=== PATIENT | female | born 1990 | race Caucasian/White ===

== ENCOUNTER 2018-08-06 05:55 | Inpatient (IN) ==
[2018-08-06] MEDS ORDERED: MEPERIDINE 50 MG/1 ML VIAL IV PRN (06:06)
[2018-08-06] MEDS ORDERED: ONDANSETRON 4 MG/2 ML VIAL IV PRN (06:06)
[2018-08-06] MEDS ORDERED: OXYTOCIN/LR 20 UNIT/1,000 ML BAG IV SCH (06:30)
[2018-08-06 06:55] LABS: Albumin 2.4 G/DL (3.4-5.0); Bilirubin,Total 0.5 MG/DL (0.2-1.0); Calcium 9.1 MG/DL (8.5-10.1); Osmolality,Calculated 279.4 MOS/KG (273-304); Total Protein 6.8 G/DL (6.4-8.3)
[2018-08-06 07:04] LABS: Basophils % 0.3 % (0.0-0.8); Eosinophils % 0.3 % (0.00-10.9); Hematocrit 31.9 VOL% (35.7-47.0); Immature Granulocytes % 0.4 %; Immature Granulocytes Absolute 0.04 #; Lymphocytes # 1.6 10*3/uL (1.4-4.0); Lymphocytes % 14.8 % (21.3-54.2); Mean Corpuscular HGB Conc 28.2 GM/DL (32-36); Mean Corpuscular Volume 79.6 FL (87-102); Mean Platelet Volume 11.9 FL (9.6-12.0); Monocytes % 5.6 % (1.7-12.7); Neutrophils % 78.6 % (38.7-73.9); Platelet Count 293 T/CUMM (130-400); Red Blood Count 4.01 MC/CUMM (3.8-5.5); Red Cell Distribution Width 16.7 % (9.3-17.3); White Blood Count 10.7 T/CUMM (4-12)
[2018-08-06 07:26] LABS: Hypochromasia 1+; Platelet Estimate Adequate
[2018-08-06 07:28] LABS: Microcytosis Slight
[2018-08-06] MEDS ORDERED: diphenhydrAMINE 50 MG/1 ML VIAL IV PRN ×2 (09:09)
[2018-08-06] MEDS ORDERED: LACTATED RINGERS 1,000 ML IV ONE (09:09)
[2018-08-06] MEDS ORDERED: NALOXONE 0.4 MG/ML VIAL IV PRN (09:09)
[2018-08-06] MEDS ORDERED: ePHEDrine 50 MG/ML AMP IV PRN (09:09)
[2018-08-06] MEDS ORDERED: FAMOTIDINE 20 MG/2 ML VIAL IV ONE (09:09)
[2018-08-06] MEDS ORDERED: CITRIC ACID/SODIUM CITRATE 30 ML UDCUP PO ONE (09:09)
[2018-08-06] MEDS ORDERED: fentaNYL 2 MCG/ROPIV 0.2% EPID 100 ML EPIDURAL SCH (09:30)
[2018-08-06] MEDS: LACTATED RINGERS 1,000 ML IV SCH ×4 (09:45→21:47)
[2018-08-06] MEDS ORDERED: LIDOCAINE MPF 2% /EPI 20 ML VIAL ONE (11:20)
[2018-08-06] MEDS ORDERED: OXYTOCIN/LR 30 UNIT/1,000 ML BAG IV ONE (11:22)
[2018-08-06] MEDS ORDERED: OXYTOCIN 10 UNIT/ML VIAL IM ONE (11:22)
[2018-08-06] MEDS ORDERED: ceFAZolin 2,000 MG in PREMIX 1 EACH IV ONE (11:30)
[2018-08-06 12:53] LABS: Cord Venous Blood HCO3 24.5 MMOL/L; Cord Venous Blood PCO2 38.7 MMHG; Cord Venous Blood PO2 32.4
[2018-08-06] MEDS ORDERED: ACETAMINOPHEN 325 MG TABLET PO PRN (13:03)
[2018-08-06] MEDS ORDERED: SIMETHICONE CHEW 80 MG TABLET PO PRN (13:03)
[2018-08-06] MEDS ORDERED: OXYTOCIN/LR 20 UNIT/1,000 ML BAG IV ONE (13:03)
[2018-08-06] MEDS ORDERED: MAGNESIUM HYDROXIDE SUSP 30 ML UDCUP PO PRN (13:03)
[2018-08-06] MEDS ORDERED: IBUPROFEN 800 MG TABLET PO PRN (13:03)
[2018-08-06] MEDS ORDERED: RHO(D) IMMUNE GLOBULIN 300 MCG SYRINGE IM ONE (13:03)
[2018-08-06 13:19] LABS: Amorphous Crystals,Urine Occasional /HPF (Few); Apearance,Urine CLEAR (Clear); Bilirubin,Urine Negative (Negative); Blood, Urine Negative (Negative); Glucose,Urine (UA) Negative (Negative); Ketones,Urine 5 mg/dL (Negative); Mucus,Urine Occasional /LPF (Occasional); Nitrite,Urine Negative (Negative); Protein,Urine Negative; RBC,Urine <1 /HPF (0-4); Squamous Epithelial Cell,Urine Occasional /HPF (0-10); Urine Color Straw (Yellow); Urine Specific Gravity 1.008 (1.001-1.035); Urine Urobilinogen < 2.0 EU/DL (0.2-1.0)
[2018-08-06] MEDS: ONDANSETRON 4 MG/2 ML VIAL IV PRN ×2 (15:15→21:47)
[2018-08-06] MEDS ORDERED: PROMETHAZINE 25 MG/1 ML VIAL IM ONE (15:57)
[2018-08-06] MEDS ORDERED: SCOPOLAMINE 1.5 MG PATCH TRANSDERM ONE (16:45)
[2018-08-06] MEDS ORDERED: PROPOFOL 200 MG/20 ML VIAL IV ONE (17:02)
[2018-08-06] MEDS ORDERED: MORPHINE 10 MG/10 ML VIAL ONE ×2 (17:02→17:05)
[2018-08-06] MEDS ORDERED: ACETAMINOPHEN INJ 1,000 MG in PREMIX 1 EACH IV SCH (17:33)
[2018-08-06 21:31] LABS: Basophils # 0.1 10*3/uL (0.0-0.2); Basophils % 0.2 % (0.0-0.8); Hematocrit 30.1 VOL% (35.7-47.0); Hemoglobin 8.4 GM/DL (12.0-16.0); Immature Granulocytes % 0.8 %; Immature Granulocytes Absolute 0.16 #; Lymphocytes % 5.2 % (21.3-54.2); Mean Corpuscular HGB Conc 27.9 GM/DL (32-36); Mean Corpuscular Volume 78.8 FL (87-102); Neutrophils % 88.8 % (38.7-73.9); Platelet Count 252 T/CUMM (130-400); Red Blood Count 3.82 MC/CUMM (3.8-5.5); Red Cell Distribution Width 16.9 % (9.3-17.3); White Blood Count 20.1 T/CUMM (4-12)
[2018-08-06] MEDS: ceFAZolin 1,000 MG in SYRINGE 1 EACH IV SCH (21:33)
[2018-08-06] MEDS: DOCUSATE SODIUM 100 MG CAPSULE PO SCH (21:45)
[2018-08-06 22:24] LABS: Band Neutrophils 2 % (0-10); Lymphocytes 5 % (20-55); Platelet Estimate Normal; Segmented Neutrophils 91 % (50-85); Total Cells Counted 100
[2018-08-06 22:28] LABS: Hypochromasia 1+; Microcytosis Slight
[2018-08-07] MEDS: ceFAZolin 1,000 MG in SYRINGE 1 EACH IV SCH (04:32)
[2018-08-07 05:35] LABS: Basophils # 0.1 10*3/uL (0.0-0.2); Basophils % 0.3 % (0.0-0.8); Eosinophils # 0.1 10*3/uL (0.0-0.87); Eosinophils % 0.3 % (0.00-10.9); Hematocrit 24.2 VOL% (35.7-47.0); Hemoglobin 7.2 GM/DL (12.0-16.0); Immature Granulocytes % 0.5 %; Immature Granulocytes Absolute 0.08 #; Lymphocytes % 11.5 % (21.3-54.2); Mean Corpuscular HGB Conc 29.8 GM/DL (32-36); Mean Corpuscular Volume 77.1 FL (87-102); Mean Platelet Volume 12.4 FL (9.6-12.0); Monocytes % 7.3 % (1.7-12.7); Neutrophils % 80.1 % (38.7-73.9); Platelet Count 235 T/CUMM (130-400); Red Blood Count 3.14 MC/CUMM (3.8-5.5); Red Cell Distribution Width 16.5 % (9.3-17.3); White Blood Count 17.3 T/CUMM (4-12)
[2018-08-07] MEDS: IBUPROFEN 800 MG TABLET PO PRN ×2 (06:19→15:52)
[2018-08-07] MEDS: DOCUSATE SODIUM 100 MG CAPSULE PO SCH ×2 (10:12→21:21)
[2018-08-07] MEDS: MULTIVITAMIN (PRENATAL) TABLET PO SCH (10:13)
[2018-08-07] MEDS ORDERED: SODIUM CHLORIDE 0.9% 1,000 ML IV PRN (11:55)
[2018-08-07] MEDS ORDERED: ACETAMINOPHEN/CODEINE 300-30 MG TABLET ONE (15:49)
[2018-08-07] MEDS: ACETAMINOPHEN/CODEINE 300-30 MG TABLET PO PRN ×2 (15:53→21:21)
[2018-08-07] MEDS: METOCLOPRAMIDE 10 MG TABLET PO SCH (21:21)
[2018-08-07 23:11] LABS: Hematocrit 30.8 VOL% (35.7-47.0); Hemoglobin 9.1 GM/DL (12.0-16.0)
[2018-08-08] MEDS: ACETAMINOPHEN/CODEINE 300-30 MG TABLET PO PRN (01:16)
[2018-08-08] MEDS: METOCLOPRAMIDE 10 MG TABLET PO SCH (05:30)
[2018-08-08] MEDS: MULTIVITAMIN (PRENATAL) TABLET PO SCH (08:25)
[2018-08-08] MEDS: DOCUSATE SODIUM 100 MG CAPSULE PO SCH (08:25)
[2018-08-08 09:23] VITALS: BP 137/87
[2018-08-08] MEDS ORDERED: DIPH/TET/ACEL PERT BOOSTER VACCINE 0.5 ML VIAL IM ONE (10:59)
== END 2018-08-08 11:45 | disposition home or self-care (01) | DRG 788 ==
LOC: N.LDOUT 05:55 → N.LD 05:57 → N.OB 16:40
PROVIDERS: ADMIT Obstetrics & Gynecology; ATTEND Obstetrics & Gynecology
PROC: LDCSECT (ICD-10-PCS; 2018-08-06 12:15)

== ENCOUNTER 2021-04-14 14:44 | Inpatient (IN) ==
[2021-04-14] MEDS ORDERED: BUTORPHANOL 2 MG/ML VIAL IV PRN (17:46)
[2021-04-14] MEDS ORDERED: MEPERIDINE 50 MG/1 ML VIAL IV PRN (17:46)
[2021-04-14] MEDS ORDERED: OXYTOCIN/LR 20 UNIT/1,000 ML BAG IV SCH (18:00)
[2021-04-14] MEDS ORDERED: AMPICILLIN INJ 2,000 MG in SODIUM CHLORIDE 0.9% 100 ML IV ONE (18:15)
[2021-04-14 18:16] LABS: Basophils % 0.3 % (0.0-0.8); Eosinophils % 0.1 % (0.00-10.9); Hematocrit 35.9 VOL% (35.7-47.0); Hemoglobin 10.9 GM/DL (12.0-16.0); Immature Granulocytes % 0.6 %; Immature Granulocytes Absolute 0.07 #; Lymphocytes # 1.4 10*3/uL (1.4-4.0); Lymphocytes % 12.1 % (21.3-54.2); Mean Corpuscular HGB Conc 30.4 GM/DL (32-36); Mean Corpuscular Volume 84.7 FL (87-102); Mean Platelet Volume 10.7 FL (9.6-12.0); Monocytes % 5.7 % (1.7-12.7); Neutrophils % 81.2 % (38.7-73.9); Platelet Count 291 T/CUMM (130-400); Red Blood Count 4.24 MC/CUMM (3.8-5.5); Red Cell Distribution Width 20.9 % (9.3-17.3); White Blood Count 11.4 T/CUMM (4-12)
[2021-04-14] MEDS ORDERED: hydrOXYzine HCL 25 MG/1 ML VIAL IM PRN (19:58)
[2021-04-14] MEDS ORDERED: diphenhydrAMINE 50 MG/1 ML VIAL IV PRN ×2 (19:58)
[2021-04-14] MEDS ORDERED: NALOXONE 0.4 MG/ML VIAL IV PRN (19:58)
[2021-04-14] MEDS ORDERED: PROMETHAZINE 25 MG/1 ML VIAL IM PRN (19:58)
[2021-04-14] MEDS ORDERED: ePHEDrine 50 MG/ML VIAL IV PRN (19:58)
[2021-04-14] MEDS ORDERED: fentaNYL 2 MCG/ROPIV 0.2% EPID 100 ML EPIDURAL SCH (20:00)
[2021-04-14] MEDS ORDERED: FAMOTIDINE 20 MG/2 ML VIAL IV PRN (20:01)
[2021-04-14] MEDS ORDERED: CITRIC ACID/SODIUM CITRATE 30 ML UDCUP PO PRN (20:01)
[2021-04-14] MEDS: LACTATED RINGERS 1,000 ML IV SCH ×3 (20:10→22:15)
[2021-04-14] MEDS ORDERED: ONDANSETRON 4 MG/2 ML VIAL ONE (20:54)
[2021-04-14] MEDS: ONDANSETRON 4 MG/2 ML VIAL IV PRN ×2 (20:56→23:22)
[2021-04-14] MEDS ORDERED: OXYTOCIN/LR 30 UNIT/1,000 ML BAG IV PRN (21:34)
[2021-04-14] MEDS ORDERED: LIDOCAINE MPF 2% /EPI 20 ML VIAL ONE (23:00)
[2021-04-14] MEDS ORDERED: fentaNYL 100 MCG/2 ML VIAL ONE (23:01)
[2021-04-14] MEDS: AMPICILLIN INJ 1,000 MG in SODIUM CHLORIDE 0.9% 100 ML IV SCH (23:25)
[2021-04-15] MEDS ORDERED: miSOPROStoL 200 MCG TABLET ONE (01:19)
[2021-04-15] MEDS ORDERED: TRANEXAMIC ACID 1,000 MG/10 ML VIAL ONE (01:20)
[2021-04-15] MEDS ORDERED: CARBOPROST TROMETHAMINE 250 MCG/ML AMP IM ONE (01:21)
[2021-04-15] MEDS ORDERED: METHYLERGONOVINE 0.2 MG/1 ML AMP ONE (01:21)
[2021-04-15 03:13] LABS: Cord Arterial Blood HCO3 16.1 MMOL/L
[2021-04-15 03:16] LABS: Cord Venous Blood HCO3 19.1 MMOL/L; Cord Venous Blood PCO2 62.5 MMHG; Cord Venous Blood PO2 19.6
[2021-04-15] MEDS: LACTATED RINGERS 1,000 ML IV SCH (03:44)
[2021-04-15] MEDS: AMPICILLIN INJ 1,000 MG in SODIUM CHLORIDE 0.9% 100 ML IV SCH (03:44)
[2021-04-15] MEDS: ONDANSETRON 4 MG/2 ML VIAL IV PRN (04:08)
[2021-04-15] MEDS ORDERED: RHO(D) IMMUNE GLOBULIN 300 MCG SYRINGE IM ONE (05:36)
[2021-04-15] MEDS ORDERED: DIPH/TET/ACEL PERT BOOSTER VACCINE 0.5 ML VIAL IM ONE (05:36)
[2021-04-15] MEDS ORDERED: ACETAMINOPHEN 325 MG TABLET PO PRN (05:36)
[2021-04-15] MEDS ORDERED: oxyCODONE/ACETAMINOPHEN 5-325 MG TABLET PO PRN ×2 (05:36)
[2021-04-15] MEDS ORDERED: OXYTOCIN/LR 20 UNIT/1,000 ML BAG IV ONE (05:36)
[2021-04-15] MEDS ORDERED: MEASLES/MUMPS/RUBELLA VACCINE 0.5 ML VIAL SUBCUT ONE (05:36)
[2021-04-15] MEDS ORDERED: HYDROCORTISONE 2.5% RECTAL CREAM 30 GM TUBE TOP PRN (05:36)
[2021-04-15] MEDS ORDERED: BISACODYL 10 MG SUPP RECTAL PRN (05:36)
[2021-04-15] MEDS ORDERED: WITCH HAZEL PADS 100/JAR TOP PRN (05:36)
[2021-04-15] MEDS ORDERED: BENZOCAINE 20%/MENTHOL 0.5% SPRAY 56 GM CAN TOP PRN (05:36)
[2021-04-15] MEDS ORDERED: LANOLIN 50% CREAM 0.3 OZ TUBE TOP PRN (05:36)
[2021-04-15] MEDS: DOCUSATE SODIUM 100 MG CAPSULE PO SCH ×2 (09:32→20:03)
[2021-04-15 11:52] LABS: Hematocrit 32.9 VOL% (35.7-47.0); Hemoglobin 9.9 GM/DL (12.0-16.0)
[2021-04-15] MEDS: IBUPROFEN 800 MG TABLET PO PRN (20:03)
[2021-04-16 06:37] LABS: Basophils # 0.1 10*3/uL (0.0-0.2); Basophils % 0.4 % (0.0-0.8); Eosinophils # 0.2 10*3/uL (0.0-0.87); Eosinophils % 0.9 % (0.00-10.9); Hematocrit 28.9 VOL% (35.7-47.0); Hemoglobin 8.8 GM/DL (12.0-16.0); Immature Granulocytes % 0.6 %; Lymphocytes # 2.3 10*3/uL (1.4-4.0); Lymphocytes % 13.7 % (21.3-54.2); Mean Corpuscular HGB Conc 30.4 GM/DL (32-36); Mean Platelet Volume 11.8 FL (9.6-12.0); Monocytes % 7.7 % (1.7-12.7); Neutrophils % 76.7 % (38.7-73.9); Platelet Count 259 T/CUMM (130-400); Red Blood Count 3.36 MC/CUMM (3.8-5.5); Red Cell Distribution Width 21.3 % (9.3-17.3); White Blood Count 16.7 T/CUMM (4-12)
[2021-04-16] MEDS: IBUPROFEN 800 MG TABLET PO PRN (07:53)
[2021-04-16] MEDS: DOCUSATE SODIUM 100 MG CAPSULE PO SCH (09:24)
[2021-04-16 15:07] VITALS: BP 136/80
[2021-04-16] MEDS ORDERED: INFLUENZA VIRUS VACCINE 0.5 ML SYRINGE IM ONE (18:28)
== END 2021-04-16 16:05 | disposition home or self-care (01) | DRG 807 ==
LOC: N.LDOUT 14:44 → N.LD 14:47 → N.OB 04-15 05:30
PROVIDERS: ADMIT Obstetrics & Gynecology; ATTEND Obstetrics & Gynecology